=== PATIENT | female | born 1970 | race Caucasian/White ===

== ENCOUNTER 2018-05-30 11:23 | Emergency (ER) | payer OTHER ==
[~2018-05-30] VITALS: Ht 167.6 cm; Wt 81.7 kg
[2018-05-30] MEDS ORDERED: AMBIEN 5 MG TABL5 M1 PO (11:35)
[2018-05-30 11:57] LABS: URINE BLOOD TRACE (Negative); URINE CLARITY CLEAR; URINE COLOR YELLOW; URINE GLUCOSE-RANDOM NEGATIVE (Negative); URINE KETONES 1+ (Negative); URINE LEUKOCYTES TRACE (Negative); URINE NITRITE POSITIVE (Negative); URINE PROTEIN TRACE (Negative); URINE SPECIFIC GRAVITY 1.025 (1.005-1.030); URINE UROBILINOGEN 0.2 E.U./dl (0.2-1.0)
[2018-05-30 12:02] LABS: ICTOTEST (BILI CONFIRMATORY) Negative (Negative); URINE BILIRUBIN 1+ (Negative)
[2018-05-30 12:14] LABS: ABSOLUTE BASOPHILS 0.1 thou/uL (0.0-0.2); ABSOLUTE EOSINOPHILS 0.1 thou/uL (0.0-0.7); ABSOLUTE LYMPHOCYTES 1.9 thou/uL (0.8-5.3); ABSOLUTE MONOCYTES 0.7 thou/uL (0.0-1.2); ABSOLUTE NEUTROPHILS 5.5 thou/uL (1.6-8.1); BASOPHILS 0.6 %; HEMATOCRIT 49.8 % (37.0-47.0); HEMOGLOBIN 17.1 gm/dL (12.0-15.0); MCH 38.5 pg (26.0-34.0); MCHC 34.4 g/dL (28.0-37.0); MCV 112.1 fL (80.0-100.0); MONOCYTES 8.4 %; MPV 7.8 fl. (7.2-11.1); NUCLEATED RBCS 0 /100WBC; PLATELET COUNT* 202 thou/uL (150-400); RBC 4.44 mil/uL (4.20-5.00); RDW-CV 18.3 % (10.5-14.5); WBC 8.2 thou/uL (4.0-11.0)
[2018-05-30 12:26] LABS: ALBUMIN 3.4 g/dL (3.4-5.0); CALCIUM 8.7 mg/dL (8.5-10.1); CREATININE 0.8 mg/dL (0.6-1.3); TOTAL BILIRUBIN 0.7 mg/dL (<0.1-1.0); TOTAL PROTEIN 7.4 g/dL (6.4-8.2)
[2018-05-30 12:28] LABS: SQUAMOUS 4-10 Moderate /LPF (0-3)
[2018-05-30 12:29] LABS: CASTS None Seen /LPF (None Seen); CRYSTALS None Seen /LPF (None Seen); MUCUS 4-6 Moderate strn/LPF (None Seen); URINE RBC 0-2 Rare /HPF (0-2); URINE WBC 6-15 Few /HPF (0-5)
[2018-05-30] MEDS ORDERED: BACTRIM DS TAB1 EACH PO (12:58)
[2018-05-30 13:08] VITALS: BP 135/87
[2018-05-30 13:08] LABS: PLATELET ESTIMATE ADEQUATE
[2018-05-30 13:09] LABS: ANISOCYTOSIS 2+; MACROCYTES 2+; POIKILOCYTOSIS 1+
--- NOTE | 2018-05-30 14:23 | EKG ---
[place] [address] ELECTROCARDIOGRAM REPORT Name: CLAUDIA HERNANDEZ Room: [facility]#: [id number] Admission: 05/30/18 Attend Phys: Discharge: 05/30/18 Date of : 68 Report #: [id number] THIS REPORT FOR: //name// [facility] ED Test Date: 2018-05-30 Test Time: 11:30:38 Pat Name: CLAUDIA CHAUHANALCIDES Department: Room: Gender: F Paster Hat Lining: ARETHA : 1970 Requested By: Celestino Gillespie Order Number: [id number] Mera MD: Keith Hopper Measurements Intervals [place] Rate: 99 P: 70 CT: 117 QRS: 79 QRSD: 97 T: 56 QT: 347 QTc: 446 Interpretive Statements Sinus rhythm Low voltage, precordial leads Baseline wander in lead(s) V1 No previous ECG available for comparison Electronically Signed On 05-30-2018 14:23:14 CDT by Kieth Hopper [email or web address] <ELECTRONICALLY SIGNED> By: Keith Hopper MD, [facility] 05/30/18 1423 1130 29 Keith Hopper MD, FACC /EPI
== END 2018-05-30 13:08 | disposition home or self-care (01) ==
LOC: M.ERS 11:23
PROVIDERS: Nurse Practitioner Family
DX: N39.0 Urinary tract infection, site not specified (principal); R42 Dizziness and giddiness

== ENCOUNTER 2018-08-14 02:09 | Inpatient (IN) | payer OTHER ==
[~2018-08-14] VITALS: Ht 170.2 cm; Wt 81.2 kg
[2018-08-14] VITALS (13 sets, daily range): BP systolic 107–155; BP diastolic 68–98
[~2018-08-14 02:09] MED LIST: AMBIEN 5 MG TABL5 M1 PO; BACTRIM DS TAB1 EACH PO
[2018-08-14 02:27] LABS: ABSOLUTE BASOPHILS 0.1 thou/uL (0.0-0.2); ABSOLUTE EOSINOPHILS 0.2 thou/uL (0.0-0.7); ABSOLUTE LYMPHOCYTES 3.6 thou/uL (0.8-5.3); ABSOLUTE MONOCYTES 0.8 thou/uL (0.0-1.2); ABSOLUTE NEUTROPHILS 4.1 thou/uL (1.6-8.1); BASOPHILS 1.4 %; EOSINOPHILS 2.1 %; HEMATOCRIT 48.7 % (37.0-47.0); HEMOGLOBIN 17.3 gm/dL (12.0-15.0); LYMPHOCYTES 40.9 %; MCH 39.9 pg (26.0-34.0); MCHC 35.5 g/dL (28.0-37.0); MCV 112.4 fL (80.0-100.0); MONOCYTES 9.1 %; NUCLEATED RBCS 0 /100WBC; PLATELET COUNT* 411 thou/uL (150-400); POLYS 46.5 %; RBC 4.34 mil/uL (4.20-5.00); RDW-CV 15.5 % (10.5-14.5); WBC 8.8 thou/uL (4.0-11.0)
[2018-08-14 02:28] LABS: BE -3.6 mmol/L (-2 to +3); PCO2 28.8 mmHg (35.0-45.0); PO2 75.9 mmHg (75.0-100.0); pH 7.434 (7.340-7.450)
[2018-08-14 02:36] LABS: URINE BILIRUBIN NEGATIVE (Negative); URINE BLOOD NEGATIVE (Negative); URINE CLARITY CLEAR; URINE COLOR YELLOW; URINE GLUCOSE-RANDOM NEGATIVE (Negative); URINE KETONES TRACE (Negative); URINE LEUKOCYTES-REFLEX NEGATIVE (Negative); URINE NITRITE-REFLEX NEGATIVE (Negative); URINE PROTEIN 1+ (Negative); URINE SPECIFIC GRAVITY >= 1.030 (1.005-1.030); URINE UROBILINOGEN 0.2 E.U./dl (0.2-1.0)
[2018-08-14 02:44] LABS: AMP/METHAMP Negative (Negative); BARBITURATES Negative (Negative); BENZODIAZEPINES Negative (Negative); COCAINE Negative (Negative); METHADONE Negative (Negative); OPIATES Negative (Negative); PCP Negative (Negative); THC Negative (Negative)
[2018-08-14 02:46] LABS: ANION GAP 21 mmol/L (7-16); BUN 15 mg/dL (7-18); CALCIUM 9.2 mg/dL (8.5-10.1); CHLORIDE 106 mmol/L (98-107); CO2 19 mmol/L (21-32); CREATININE 0.9 mg/dL (0.6-1.3); GLUCOSE 135 mg/dL (70-99); POTASSIUM 3.9 mmol/L (3.5-5.1); SODIUM 146 mmol/L (136-145)
[2018-08-14 02:51] LABS: ALCOHOL 214 mg/dL (<10); SALICYLATE 4.1 mg/dL (2.8-20.0)
[2018-08-14 02:56] LABS: ALBUMIN 3.9 g/dL (3.4-5.0); ALKALINE PHOSPHATASE 82 U/L (46-116); SGOT 76 U/L (15-37); SGPT 47 U/L (30-65); TOTAL BILIRUBIN 0.5 mg/dL (<0.1-1.0); TOTAL PROTEIN 7.6 g/dL (6.4-8.2); TROPONIN-I LEVEL <0.06 ng/mL (<0.06)
[2018-08-14 02:57] LABS: ACETAMINOPHEN < 2 ug/mL (10-30)
[2018-08-14 12:10] LABS: BE -3.1 mmol/L (-2 to +3); PCO2 30.7 mmHg (35.0-45.0); PO2 71.9 mmHg (75.0-100.0)
[2018-08-15] VITALS (10 sets, daily range): BP systolic 98–156; BP diastolic 72–110
[2018-08-15 05:29] LABS: CALCIUM 8.3 mg/dL (8.5-10.1); CREATININE 0.6 mg/dL (0.6-1.3); MAGNESIUM 2.1 mg/dL (1.8-2.4)
[2018-08-15 05:31] LABS: POTASSIUM 3.9 mmol/L (3.5-5.1)
--- NOTE | 2018-08-15 14:45 | EKG ---
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
[2018-08-16 16:32] VITALS: BP 152/102
[2018-08-16 20:45] VITALS: BP 142/92
[2018-08-17 07:40] VITALS: BP 152/102
[2018-08-17 13:20] VITALS: BP 152/102
== END 2018-08-17 14:03 | disposition home or self-care (01) | DRG 917 ==
LOC: M.ERS 02:09 → M.TBA-ER 04:21 → M.ICU 04:21 → M.ORTHSURG 08-15 11:51
PROVIDERS: Emergency Medicine Emergency Medical Services; Internal Medicine; ADMIT Internal Medicine
DX: T58.8X2A Toxic effect of carbon monoxide from other source, intentional self-harm, initial encounter (principal); G92 Toxic encephalopathy; E87.0 Hyperosmolality and hypernatremia; R45.851 Suicidal ideations; F17.210 Nicotine dependence, cigarettes, uncomplicated; E86.0 Dehydration; F10.229 Alcohol dependence with intoxication, unspecified; Y90.9 Presence of alcohol in blood, level not specified; D75.1 Secondary polycythemia; Z88.2 Allergy status to sulfonamides; Z88.8 Allergy status to other drugs, medicaments and biological substances; Y92.89 Other specified places as the place of occurrence of the external cause; Z88.1 Allergy status to other antibiotic agents